=== PATIENT | female | born 1980 ===

== ENCOUNTER → 2023-07-05 | Day surgery (SDC) | payer OTHER ==
[~2023-07-05] MED LIST: BUPIVACAINE HCL 30 ML VIAL IJ ONE; BUPIVACAINE HCL/PF 0.5% 30ML ML ONE; DIBUCAINE 15 GM OINT..GM. TUBE ONE; DIBUCAINE 30 GM TUBE RECTAL ONE; HEMOSTATIC MATRIX 1 KIT KIT TOP ONE; LIDOCAINE HCL 1%/Epi 20ML VIAL IJ ONE; METRONIDAZOLE/SODIUM CHLORIDE 500 MG/100 ML PIGGYBACK IV ONE; PERCOCET 5-3251 EACH PO; POVIDONE-IODINE 118 ML BOTT TOP ONE; RECTICARE30 GM TOP; TAMSULOSIN HCL 0.4 MG CAP PO ONE; levoFLOXacin IN DEXTROSE 5 % 5 MG/ML PIGGYBAG IV ONE
== END | disposition home or self-care (01) ==
LOC: ADM 06-28 10:45 → CIR.AMB 08:30
PROVIDERS: ATTEND Surgery
DX: K62.0 Anal polyp (principal); D12.9 Benign neoplasm of anus and anal canal; R19.4 Change in bowel habit; Z88.0 Allergy status to penicillin; Z88.2 Allergy status to sulfonamides